=== PATIENT | female | born 1940 | race Caucasian/White ===

== ENCOUNTER → 2016-11-11 | Outpatient (CLI) | payer MEDICARE, OTHER ==
[~2016-11-11] MED LIST: EVISTA60 M1 PO; MULTI VITAMIN1 EACH PO; OTC ALLERGY MED PO; OTC FIBER PO; PROLIA60 MG/1 ML SQ
== END | disposition home or self-care (01) ==
LOC: CSSDAY 12:43
DX: M81.0 Age-related osteoporosis without current pathological fracture (principal); Z79.899 Other long term (current) drug therapy
CPT/HCPCS: 36415; 82310; 96372; J0897